=== PATIENT | female | born 1995 | race American Indian/Alaskan Native ===

== ENCOUNTER 2019-03-11 00:49 | Outpatient (CLI) | payer MEDICAID ==
[2019-03-11] MEDS ORDERED: LACTATED RINGERS 1,000 ML IV ONE ×3 (04:33→09:40)
[2019-03-11 05:15] LABS: Bilirubin,Urine NEG (Negative); Blood,Urine NEG (Negative); Color,Urine Yellow (Yellow); Mucus,Urine 1+ /HPF; Protein,Urine <15 mg/dL mg/dL (Negative)
[2019-03-11] MEDS ORDERED: TYLENOL PO STA (07:42)
[2019-03-11] MEDS ORDERED: TYLENOL PO ONE (08:22)
[2019-03-11] MEDS ORDERED: LACTATED RINGERS 1,000 ML ONE (09:40)
[2019-03-11 10:36] VITALS: BP 90/51
== END 2019-03-11 13:00 | disposition home or self-care (01) ==
LOC: TRG 00:49
PROVIDERS: ATTEND Obstetrics & Gynecology
DX: O26.893 Other specified pregnancy related conditions, third trimester (principal); R10.9 Unspecified abdominal pain; R51 Headache; Z3A.30 30 weeks gestation of pregnancy
CPT/HCPCS: 81001; 96360; 96361; J7120; 59025

== ENCOUNTER 2019-04-21 06:02 | Outpatient (CLI) | payer MEDICAID ==
--- NOTE | 2019-04-21 20:35 | Progress Note ---
Assessment and Plan A: at 38 weeks gestation. False labor. Reactive NST. P: Discharge patient home with labor precautions and instructions re: warning signs and daily movement counting. Follow up as scheduled with [facility]. Return if active labor or any problems. Subjective - Subjective Date of service: 04/21/19 Principal diagnosis: 38 weeks gestation; R/O labor Interval history: 23 year old at 38 weeks gestation presents to rule out labor. Pt. reports contractions. Denies leaking of fluid or vaginal bleeding. Pt. reports active movement. Patient reports: movement normal, contractions, no loss of fluid, no vaginal bleeding Objective - Exam Abdomen: Present: normal appearance, soft. Absent: distention, tenderness, guarding, rigidity FHR: category 1 Uterine Contraction Monitor Mode: External Cervical Dilatation: 1 Cervical Effacement Percentage: 90 station: -1 Uterine Contraction Pattern: Irregular Uterine Contraction Intensity: Mild
== END 2019-04-21 07:35 | disposition home or self-care (01) ==
LOC: TRG 06:02
PROVIDERS: ATTEND Obstetrics & Gynecology
DX: O62.8 Other abnormalities of forces of labor (principal); Z3A.38 38 weeks gestation of pregnancy
CPT/HCPCS: 59025

== ENCOUNTER 2019-05-05 12:35 | Inpatient (IN) | payer MEDICAID ==
[2019-05-05] MEDS ORDERED: LACTATED RINGERS 1,000 ML ONE ×2 (12:57→14:52)
[2019-05-05] MEDS ORDERED: ZOFRAN ONE ×2 (13:00→14:52)
[2019-05-05] MEDS ORDERED: TORADOL ONE ×2 (13:00→16:01)
[2019-05-05] MEDS ORDERED: PEPCID IV ONE (13:13)
[2019-05-05] MEDS ORDERED: BICITRA PO ONE (13:13)
[2019-05-05] MEDS ORDERED: REGLAN IV ONE (13:13)
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
[2019-05-05] MEDS ORDERED: LACTATED RINGERS 1,000 ML IV SCH ×2 (14:00)
[2019-05-05] MEDS ORDERED: PITOCin/NS 20 UNIT/1000ML DRIP 20 UNITS/1,000 ML BAG IV SCH ×2 (14:00→16:00)
[2019-05-05] MEDS ORDERED: ANCEF/STERILE WATER 2 GM/20 ML 2 GM/20 ML SYRINGE IV NR (14:00)
[2019-05-05 14:23] LABS: Basophils % (Auto) 0.2 % (0.0-1.8); Eosinophils # (Auto) 0.1 K/mm3 (0.0-0.4); Eosinophils % (Auto) 0.4 % (0.0-4.3); Hematocrit 31.6 % (30.3-42.9); Hemoglobin 10.2 gm/dl (10.1-14.3); Lymphocytes # (Auto) 2.2 K/mm3 (1.2-5.4); Lymphocytes % (Auto) 18.7 % (13.4-35.0); Mean Corpuscular HGB Conc 32 % (30-34); Mean Corpuscular Volume 76 fl (79-97); Monocytes # (Auto) 0.7 K/mm3 (0.0-0.8); Monocytes % (Auto) 6.1 % (0.0-7.3); Platelet Count 241 K/mm3 (140-440); Red Blood Count 4.18 M/mm3 (3.65-5.03); Red Cell Distribution Width 15.2 % (13.2-15.2)
[2019-05-05] MEDS ORDERED: ZOFRAN IV PRN (14:45)
[2019-05-05] MEDS ORDERED: PHENERGAN PO PRN (14:45)
[2019-05-05] MEDS ORDERED: NARCAN 0.4 MG/1 ML IV PRN ×2 (14:45→15:51)
[2019-05-05] MEDS ORDERED: PHENERGAN PR PRN (14:45)
[2019-05-05] MEDS ORDERED: SUBLIMAZE ONE (14:52)
[2019-05-05] MEDS ORDERED: ANCEF/STERILE WATER 2 GM/20 ML IV ONE (14:53)
[2019-05-05] MEDS ORDERED: SODIUM CHLORIDE FLUSH SYRINGE 10 ML IV NR ×2 (15:00→16:00)
--- NOTE | 2019-05-05 15:50 | Operative Report ---
Operative Report Operative Report: Date of procedure: 05/05/2019 Pre-operative diagnosis: 1. Intrauterine at 39-2/7 weeks 2. Sponta neous rupture of membranes 3. Positive HSV outbreak Post-operative diagnosis: Same Procedure name(s): Primary low-transverse section Surgeon: Harpreet King MD Title Lawyer: None Anesthesia: Spinal anesthesia by Zachery King CRNA EBL: 350 mL Findings: A 2887 g male infant Apgars 8 and 9 at 1 minute 9 at 5 minutes. Clear amniotic fluid. Normal uterus. Normal tubes and ovaries bilaterally. Procedure: After the patient was prepped and draped in usual sterile fashion, and after satisfactory level of epidural anesthesia was obtained, the skin knife was used to make a transverse skin incision. The incision was excised down to layer of the fascia, which was nicked in the midline and extended laterally using the Bovie cautery. The rectus muscles were dissected off the rectus fascia both superiorly and inferiorly. The rectus bellies in the midline, and the peritoneum was entered under direct visualization. The peritoneal incision was extended superiorly and inferiorly. A bladder flap was created and the bladder blade was then placed. The uterus was scored in a curvilinear linear fashion, entered in the midline revealing clear amniotic fluid. The infant's head was delivered onto the surgical field, and the oropharynx and nasopharynx were bulb suctioned. The rest of the 's body was delivered, cord was doubly clamped and cut and the infant was handed to the waiting respiratory team. Cord blood was then obtained. The placenta was manually removed from the uterus, and the uterus removed from its normal anatomical position. After gentle uterine lavage, the incision was inspected and found to be without extensions. It was then closed in 2 layers using 0 Vicryl suture in a running interlocking fashion, the second layer imbricating the first. After good hemostasis was achieved, copious amounts or irrigation was performed, and the gutters were suctioned free of blood and blood clots. Tisseel sealant was sprayed across the uterine incision. The uterus was then returned to its normal anatomical position, and after excellent hemostasis assured, the peritoneum was re-approximated using 3-0 Vicryl suture in a running interlocking fashion, and then the rectus muscles were re-approximated using 3-0 Vicryl suture in a [id number] configuration. The fascia was then re- approximated using 0 Vicryl suture in running interlocking fashion. The subcutaneous layer was made hemostatic using Bovie cautery, the Tisseel sealant was sprayed across the fascial incision and the skin edges re-approximated using 4-0 Vicryl suture in a sub-cuticular fashion. Patient tolerated the procedure well was transported to recovery in stable condition.
[2019-05-05] MEDS ORDERED: SENOKOT PO PRN (15:51)
[2019-05-05] MEDS ORDERED: LANSINOH TP PRN (15:51)
[2019-05-05] MEDS ORDERED: MILK OF MAGNESIA PO PRN (15:51)
[2019-05-05] MEDS ORDERED: MYLICON PO PRN (15:51)
[2019-05-05] MEDS ORDERED: TUCKS PAD TP PRN (15:51)
[2019-05-05] MEDS ORDERED: TYLENOL PO PRN (15:51)
--- NOTE | 2019-05-05 16:06 | Anesthesia Consultation ---
Anesthesia Consult and Med Hx - Airway Anesthetic Teeth Evaluation: Good ROM Head & Neck: Adequate Mental/Hyoid Distance: Adequate Mallampati Class: Class I Intubation Access Assessment: Good - Pulmonary Exam CTA: Yes - Cardiac Exam Cardiac Exam: RRR - Pre-Operative Health Status ASA Pre-Surgery Classification: ASA2 Proposed Anesthetic Plan: Spinal - Pulmonary Hx Asthma: No COPD: No Hx Pneumonia: No - Cardiovascular System Hx Hypertension: No - Central Nervous System Hx Seizures: No Hx Psychiatric Problems: No - Endocrine Hx Renal Disease: No Hx End Stage Renal Disease: No Hx Hypothyroidism: No Hx Hyperthyroidism: No - Hematic Hx Anemia: No Hx Sickle Cell Disease: No - Other Systems Hx Alcohol Use: No
--- NOTE | 2019-05-05 16:06 | Anesthesia Day of Surgery ---
Anesthesia Day of Surgery - Day of Surgery Patient Examined: Yes Patient H&P Reviewed: Yes Patient is NPO: Yes Beta Blockers: No Cardiac Clearance: No Pulmonary Clearance: No Robin's Test: N/A
--- NOTE | 2019-05-05 16:09 | Post Anesthesia Evaluation ---
- Post Anesthesia Evaluation Patient Participated: Yes Airway Patent: Yes Stable Respiratory Function: Yes Nausea/Vomiting: No Temp > 96.8F: Yes Pain Manageable: Yes Adequeate Hydration: Yes Anesthesia Complications: No Block Receding Appropriately: Yes Patient on Ventilator: No
[2019-05-05] MEDS: D5LR 1,000 ML IV SCH (18:43)
[2019-05-05] MEDS: TORADOL IV PRN (21:41)
[2019-05-05] MEDS: ANCEF/NS 1 GM/50 ML 1 GM/50 ML BAG IV SCH (23:25)
[2019-05-06] MEDS: D5LR 1,000 ML IV SCH (03:17)
[2019-05-06] MEDS: TORADOL IV PRN (03:23)
[2019-05-06 06:54] LABS: Hematocrit 29.9 % (30.3-42.9); Hemoglobin 9.6 gm/dl (10.1-14.3)
[2019-05-06] MEDS ORDERED: PRENATAL VITAMIN PO SCH (10:00)
[2019-05-06] MEDS ORDERED: FEOSOL PO SCH (10:00)
[2019-05-06] MEDS: PERCOCET 5/325 PO PRN (10:10)
[2019-05-06] MEDS: IBUPROFEN PO PRN ×2 (10:16→20:05)
[2019-05-06] MEDS: NORCO 5/325 PO PRN ×2 (10:17→20:04)
[2019-05-06] MEDS: ANCEF/NS 1 GM/50 ML 1 GM/50 ML BAG IV SCH (10:52)
--- NOTE | 2019-05-06 11:31 | Progress Note ---
Assessment and Plan A: /postop day 1 S/P primary low transverse section. Anemia secondary to and blood loss. P: Supplement with iron. Encouraged ambulation. Advance diet as tolerated when patient is passing gas. Subjective - Subjective Date of service: 05/06/19 Principal diagnosis: /postop day 1 S/P primary LTCS Interval history: /postop day 1 S/P primary low transverse section. Patient is doing well. She reports a small amount of lochia. She is voiding without difficulty. No flatus yet. Ambulating. Tolerating a clear liquid diet. Patient denies headache, cough, shortness of breath, chest pain, dizziness, nausea or vomiting, leg pain, or heavy bleeding. Patient reports: appetite normal, voiding normally, pain well controlled, ambulating normally, no dizzy ambulation, no flatus, no nauseated [place]: doing well Objective - Vital Signs Latest vital signs: Vital Signs Temp Pulse Resp BP BP Pulse Ox 05/06/19 10:17 18 05/06/19 10:16 18 05/06/19 10:10 18 05/06/19 07:27 98.3 F 84 18 106/67 98 05/06/19 03:23 18 05/06/19 00:51 98.0 F 72 20 111/75 99 05/05/19 21:41 18 05/05/19 20:57 98.0 F 87 20 117/78 100 05/05/19 17:20 97.4 F L 61 20 129/85 99 05/05/19 16:55 67 16 120/78 100 05/05/19 16:40 69 14 128/87 100 05/05/19 16:25 75 16 125/83 100 05/05/19 16:10 80 14 123/83 100 05/05/19 16:05 78 16 126/84 100 05/05/19 16:00 87 16 121/85 100 05/05/19 15:55 97.7 F 89 15 122/83 100 05/05/19 14:16 98.1 F 05/05/19 13:39 96 H 114/64 Intake and Output 05/05/19 05/06/19 05/06/19 23:59 07:59 15:59 Intake Total 440 1480 Output Total 1400 2100 Balance -960 -620 Intake: IV 200 1000 D5lr 1,000 ml @ 125 mls/ 1000 hr IV DIRECT RICARDO Rx#: [id number] Oral 120 120 Intake, Free Water 120 360 Output: Urine 1400 2100 Indwelling Catheter 800 2000 Void 100 Other: Total, Intake Amount 120 120 Total, Output Amount 800 100 Estimated Blood Loss 800 - Exam Cardiovascular: Present: Regular rate, Normal S1, Normal S2, No murmurs Lungs: Present: Clear to auscultation Abdomen: Present: normal appearance, soft, normal bowel sounds. Absent: distention, tenderness, guarding, rigidity Uterus: Present: normal, firm, fundal height below umbilicus. Absent: bogginess, tenderness Extremities: Present: normal, tenderness. Absent: edema Incision: Present: normal, dry, intact, dressed - Labs Labs: Abnormal lab results 05/05/19 05/06/19 Range/Units 13:20 05:59 WBC 11.5 H (4.5-11.0) K/mm3 Hgb 9.6 L (10.1-14.3) gm/dl Hct 29.9 L (30.3-42.9) % MCV 76 L (79-97) fl MCH 25 L (28-32) pg Seg Neutrophils % 74.6 H (40.0-70.0) % Seg Neutrophils # 8.6 H (1.8-7.7) K/mm3
[2019-05-06] MEDS ORDERED: M-M-R II VACCINE SUB-Q ONE (15:52)
[2019-05-06] MEDS ORDERED: BOOSTRIX IM ONE (15:52)
[2019-05-07] MEDS: IBUPROFEN PO PRN ×2 (03:08→14:07)
[2019-05-07] MEDS: NORCO 5/325 PO PRN ×2 (03:09→14:08)
--- NOTE | 2019-05-07 09:49 | Progress Note ---
Assessment and Plan - Patient Problems (1) S/P primary low transverse Current Visit: Yes Status: Acute Plan to address problem: POD 2 - stable Continue routine postop orders Ambulation encouraged Rectal suppository to assist with flatus/bowel movement Abdominal binder as needed Anticipate discharge in 24 hours (2) Anemia due to blood loss, acute Current Visit: Yes Status: Acute Plan to address problem: Asymptomatic Continue iron therapy Subjective - Subjective Date of service: 05/07/19 Principal diagnosis: POD #2, s/p Primary LTCS Interval history: see H&P, Operative Report, and PP/CAREER TECHNICAL EDUCATION INSTRUCTOR Progress Note Patient reports: appetite normal, voiding normally, pain well controlled, ambulating normally, no dizzy ambulation, no flatus, no bowel movement [place]: doing well, bottle feeding (having difficulties getting baby to latch; RN assisting) Objective - Vital Signs Latest vital signs: Vital Signs Temp Pulse Resp BP Pulse Ox 05/06/19 23:01 98.2 F 93 H 20 123/81 98 05/06/19 16:11 98.1 F 92 H 16 99/61 100 05/06/19 12:14 97.6 F 98 H 16 111/72 98 05/06/19 10:17 18 05/06/19 10:16 18 Intake and Output 05/06/19 05/07/19 05/07/19 23:59 07:59 15:59 Intake Total 120 Balance 120 Intake: Oral 120 Other: Total, Intake Amount 120 # Voids Void 1 - Exam Breasts: Present: normal Cardiovascular: Present: Regular rate Lungs: Present: Clear to auscultation Abdomen: Present: normal appearance, soft, distention (mild) Vulva: both: normal Uterus: Present: normal, firm, fundal height below umbilicus Extremities: Present: normal Incision: Present: normal, dry, intact, other (setri strips in place)
[2019-05-07] MEDS ORDERED: DULCOLAX PR PRN (10:02)
[2019-05-07] MEDS: PERCOCET 5/325 PO PRN (18:20)
[2019-05-08] MEDS: NORCO 5/325 PO PRN (00:22)
[2019-05-08] MEDS: IBUPROFEN PO PRN ×2 (00:22→07:52)
[2019-05-08] MEDS: PERCOCET 5/325 PO PRN (07:49)
[2019-05-08 08:21] VITALS: BP 119/88
--- NOTE | 2019-05-08 10:00 | Progress Note ---
Assessment and Plan - Patient Problems (1) S/P primary low transverse Current Visit: Yes Status: Acute Plan to address problem: May d/c home today 1 week incision check at office in 1 week 6 week PPV at office (2) Anemia due to blood loss, acute Current Visit: Yes Status: Acute Plan to address problem: Continue oral iron supplementation after d/c home Subjective - Subjective Date of service: 05/08/19 Principal diagnosis: POD #3, s/p Primary LTCS Interval history: See admission H & P, OB delivery summary and PP progress notes Patient reports: appetite normal, voiding normally, pain well controlled, flatus, bowel movement (states she has been having BMs without difficulty ever since suppository was given), ambulating normally [place]: doing well, bottle feeding (and ) Objective - Vital Signs Latest vital signs: Vital Signs Temp Pulse Resp BP BP Pulse Ox 05/08/19 08:10 98.1 F 100 H 20 119/88 100 05/08/19 00:18 98.2 F 85 20 102/62 97 05/07/19 16:32 98.3 F 116 H 16 140/86 100 Intake and Output 05/07/19 05/08/19 05/08/19 23:59 07:59 15:59 Intake Total 360 Balance 360 Intake: Intake, Free Water 360 Other: # Voids Void 2 - Exam Breasts: Present: normal Cardiovascular: Present: Regular rate Lungs: Present: Normal air movement Abdomen: Present: soft, tenderness (slight), normal bowel sounds Uterus: Present: firm, fundal height below umbilicus (U-2) Extremities: Present: normal Deep Tendon Reflex Grade: Normal +2 Incision: Present: normal, dry, intact (no signs of infection noted)
--- NOTE | 2019-05-08 10:06 | Discharge Summary ---
Providers - Providers Date of Admission: 05/05/19 12:35 Date of discharge: 05/08/19 (1200) Attending physician: TRELL OSUNA MD Primary care physician: TRELL OSUNA MD Hospitalization Reason for admission: rupture of membranes, IUP at term Delivery: Procedure: section Episiotomy: none Laceration: none Incision: dry, intact Other procedures: none complications: none Discharge diagnosis: IUP at term delivered, other (Anemia) [place] baby: male Hospital course: See admission H & P, OB operative note and PP progress notes Condition at discharge: Good Disposition: DC-01 TO HOME OR SELFCARE - Discharge Diagnoses (1) S/P primary low transverse Status: Acute (2) Anemia due to blood loss, acute Status: Acute Plan - Discharge Medications Prescriptions: Ferrous Sulfate [Feosol 325 MG tab] 325 mg PO BID #60 tablet Ibuprofen [Motrin] 800 mg PO Q8HR PRN #30 tablet PRN Reason: Pain, Mild (1-3) HYDROcodone/APAP 5-325 [[place] 5/325] 1 each PO Q6HR PRN #30 tablet PRN Reason: Pain Vit-Fe Fumar-FA [ Vitamin] 1 tab PO QDAY #30 tablet - Provider Discharge Summary Activity: routine, no sex for 6 weeks, no heavy lifting 4 weeks, no strenuous exercise Diet: routine Instructions: routine Additional instructions: [] Smoking cessation referral if applicable(refer to patient education folder for contact #) [] Refer to [facility]'s [facility] Booklet Call your doctor immediately for: * Fever > 100.5 * Heavy vaginal bleeding ( >1 pad per hour) * Severe persistent headache * Shortness of breath * Reddened, hot, painful area to leg or breast * Drainage or odor from incision. * Keep incision clean and dry at all times and follow doctor's instructions regarding bathing/showering * Continue daily oral iron supplementation - Follow up plan Follow up: TRELL OSUNA MD [Primary Care Provider] - 7 Days
== END 2019-05-08 16:00 | disposition home or self-care (01) | DRG 765 ==
LOC: LD 12:35 → OB 17:56
PROVIDERS: ADMIT Obstetrics & Gynecology; ATTEND Obstetrics & Gynecology
PROC: 10D00Z1 Extraction of Products of Conception, Low, Open Approach (ICD-10-PCS; principal; 2019-05-05)
DX: O98.52 Other viral diseases complicating childbirth (principal); D62 Acute posthemorrhagic anemia; Z3A.39 39 weeks gestation of pregnancy; Z37.0 Single live birth; O99.03 Anemia complicating the puerperium; O99.824 Streptococcus B carrier state complicating childbirth; Z86.69 Personal history of other diseases of the nervous system and sense organs; B00.9 Herpesviral infection, unspecified
CPT/HCPCS: 36415; 85014; 85018; 85025; 86850; 86900; 86901; 88307; 88342; G0378; A6250; J0690; J1885; J2405; J2590; J2765; J3010; J7120; J7121